=== PATIENT | female | born 1940 | race Caucasian/White ===

== ENCOUNTER 2018-10-10 11:08 | Observation (INO) | payer MEDICARE ==
[~2018-10-10] VITALS: Ht 160 cm; Wt 55.3 kg
[~2018-10-10 11:08] MED LIST: AMIODARONE HCL200 MG PO; ASPIR-LOW81 MG PO; BYSTOLIC10 MG PO; CALTRATE 600 W1 EACH PO; CENTRUM SILVER1 EAC3 PO; CRESTOR20 MG PO; CULTURELLE CAP1 EACH PO; LEVOTHYROXINE75 MCG PO; NAMENDA10 MG PO; PANTOPRAZOLE SO40 MG PO; RIVASTIGMINE1.5 MG TD; STOOL SOFTENER1 EAC2 PO; TYLENOL325 MG PO; VITAMIN D1000 UNI1 PO
--- OUTSIDE RECORDS SUMMARY | 2018-10-10 11:11 | XMS REPORT | Clinical Summary ---
Author Author [email or web address] Organization [facility] Address Unknown Phone Unavailable Care Team Providers Care Woods Boss Name Role Phone Chino Thompson MD PCP Allergies Comments Active Allergy Reactions Severity Noted Date Hallucinations Sulfamethoxazole-Trimetho Other (See 07/31/2014 prim Comments) Phenylephrine-Pheniramine 07/27/2014 Latex 07/27/2014 Medications End Date Status Medication Sig Dispensed Refills Start Date Active alendronate (FOSAMAX) 70 Take 70 mg by 0 MG tablet mouth every 7 days Take in the morning with a full glass of water, on an empty stomach, and do not take anything else by mouth or lie down for the next 30 min. . Active conjugated estrogens Place 0.5 g 0 (PREMARIN) 0.625 mg/gram vaginally vaginal cream twice a week. Active aspirin 81 MG EC tablet Take 81 mg by 0 mouth daily. Active acetaminophen (TYLENOL) Take 500 mg 0 500 MG tablet by mouth every 6 (six) hours as needed for Pain. Active NEBIVOLOL HCL (BYSTOLIC Take by 0 ORAL) mouth. Active LEVOTHYROXINE SODIUM Take by 0 (LEVOTHYROXINE ORAL) mouth. Active PITAVASTATIN CALCIUM Take by 0 (LIVALO ORAL) mouth. Active MEMANTINE HCL (NAMENDA Take by 0 ORAL) mouth. Active RANITIDINE HCL ORAL Take by 0 mouth. Active ezetimibe (ZETIA) 10 mg Take 10 mg by 0 tablet mouth daily. Active hydrocortisone Place 1 12 0 (ANUSOL-HC) 25 mg suppository suppository 5 suppository (25 mg total) rectally 2 (two) times daily. Active Problems Problem Noted Date Shingles rash 08/01/2014 Pneumonia 07/29/2014 Chest pain 07/27/2014 Hypotension 07/27/2014 Social History Date Tobacco Use Types Packs/Day Years Used Current Every Day Smoker Cigarettes 0.5 Alcohol Use Drinks/Week oz/Week Comments No Sex Assigned at Date Recorded Not on file Industry Job Start Date Occupation Not on file Not on file Not on file Travel End Travel History Travel Start No recent travel history available. Last Filed Vital Signs Not on file Plan of Treatment Not on file Results Not on fileafter 10/09/2017 Insurance Payer Benefit Subscriber ID Type Phone Address Plan / Group MEDICARE MEDICARE A xxxxxxxxxx Medicare B [facility] UN xxxxxxxxx CARE COMMERCIAL HEALTHCARE INDEMNITY Advance Directives For more information, please contact: [facility] [address] [place] [address] Date Inactivated Comments Code Status Date Activated 08/03/2014 7:50 PM Full Code 07/28/2014 12:25 AM This code status was determined by: Patient
--- OUTSIDE RECORDS SUMMARY | 2018-10-10 11:11 | XMS REPORT ---
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 Allergies, Adverse Reactions, Alerts This patient has no known allergies or adverse reactions. Medications This patient has no known medications. Results Test Description Test Time Test Comments Text Results Atomic Results Result Comments CHEST [address] [address] Patient Name: PATRICA ISSA MR #: [id number] : 1940 Age/Sex: 76/F Req #: [id number] Adm Physician: Ordered by: RON GOMES MD Report #: [id number] Location: ER Room/Bed: Procedure: [id number] DX/CHEST 2 VIEWS Exam Date: 12/28/16 Exam Time: 0152 REPORT STATUS: Signed EXAMINATION: CHEST 2 VIEWS INDICATION: Chest pain COMPARISON: None FINDINGS: TUBES and LINES: None. LUNGS: Lungs are well inflated. Right lower lobe airspace opacity is suspicious for atelectasis versus developing infection. Calcific density overlying the anterior left hemithorax compatible with pleural calcification. PLEURA: No pleural effusion or pneumothorax. HEART AND MEDIASTINUM: The cardiomediastinal silhouette is unremarkable. BONES AND SOFT TISSUES: No acute osseous lesion. Soft tissues are unremarkable. UPPER ABDOMEN: No free air under the diaphragm. There are cholecystectomy clips. IMPRESSION: Suspected right lower lobe pneumonia. Follow-up until resolution after treatment is recommended Signed by: Dr. Junior Escamilla M.D. on 12/28/2016 2:54 AM Dictated By: JUNIOR SMITH MD 3 Transcribed By: JOE on 12/28/16253 COPY TO: RON GOMES MD
[2018-10-10] MEDS ORDERED: SODIUM CHLORIDE 0.9% 500ML 500 ML IV STA (11:30)
[2018-10-10] MEDS ORDERED: ASPIRIN 81 MG CHEW TAB PO ONE (12:00)
[2018-10-10] MEDS ORDERED: ONDANSETRON HCL INJ 2MG/ML 2ML 2 MG/ML VIAL IV PRN (12:00)
--- NOTE | 2018-10-10 12:12 | Diagnostic Imaging Report ---
EXAMINATION: CHEST SINGLE (PORTABLE) INDICATION: Shortness of breath COMPARISON: None FINDINGS: LINES/TUBES:EKG leads overlie the chest. LUNGS:The lungs are hyperinflated. Left greater than right biapical pleural parenchymal thickening/scarring. No focal consolidation or pulmonary edema. PLEURA:No pleural effusion or pneumothorax. MEDIASTINUM:The cardiomediastinal silhouette appears normal in size and shape. BONES/SOFT TISSUES:No acute osseous injury. ABDOMEN:No free air under the diaphragm. IMPRESSION: Hyperinflated lungs. No focal pneumonia or pulmonary edema. Signed by: Manuel Kendall MD on 10/10/2018 12:08 PM
--- OUTSIDE RECORDS SUMMARY | 2018-10-10 12:15 | XMS REPORT | Clinical Summary ---
Author Author [facility] Organization [facility] Address Unknown Phone Unavailable Care Team Providers Care Paper Colorer Name Role Phone Chino Thompson MD PCP [...] Group MEDICARE MEDICARE A xxxxxxxxxx Medicare B [facility] UN xxxxxxxxx CARE COMMERCIAL HEALTHCARE INDEMNITY Advance Directives For more information, please contact: [facility] [address] [place] [address] Date Inactivated Comments Code Status Date Activated 08/03/2014 7:50 PM Full Code 07/28/2014 12:25 AM This code status was determined by: Patient
[2018-10-10 12:22] LABS: BASOPHILS # (AUTO) 0.1 (0.0-0.1); BASOPHILS % 0.7 % (0.0-1.0); EOSINOPHILS # (AUTO) 0.3 (0.0-0.4); HEMATOCRIT 39.9 % (34.2-44.1); HEMOGLOBIN 13.1 g/dL (12.0-16.0); LYMPHOCYTES # (AUTO) 1.8 (1.0-3.2); LYMPHOCYTES % 24.4 % (18.0-39.1); MEAN CORPUSCULAR HEMOGLOBIN 31.3 pg (28-32); MEAN CORPUSCULAR HGB CONC 32.8 g/dL (31-35); MEAN CORPUSCULAR VOLUME 95.5 fL (81-99); MONOCYTES # (AUTO) 0.7 (0.2-0.8); MONOCYTES % 8.9 % (4.4-11.3); NEUTROPHILS # (AUTO) 4.6 (2.1-6.9); NEUTROPHILS % 61.7 % (38.7-80.0); PLATELET COUNT 163 x10e3/uL (140-360); RED BLOOD COUNT 4.18 x10e6/uL (3.6-5.1); RED CELL DISTRIBUTION WIDTH 13.8 % (11.7-14.4)
[2018-10-10 12:31] LABS: INR 0.86; PROTHROMBIN TIME 12.2 seconds (11.9-14.5)
[2018-10-10 12:32] LABS: PARTIAL THROMBOPLASTIN TIME 23.6 seconds (23.8-35.5)
[2018-10-10 12:40] LABS: ALBUMIN 3.6 g/dL (3.5-5.0); ALBUMIN/GLOBULIN RATIO 1.4 (0.8-2.0); ANION GAP 14.2 mmol/L (8-16); CALCIUM 9.3 mg/dL (8.4-10.2); CREATININE, SERUM 0.96 mg/dL (0.57-1.11); POTASSIUM 4.2 mmol/L (3.5-5.1)
[2018-10-10 12:41] LABS: CLARITY,URINE SL CLOUDY (CLEAR); COLOR,URINE YELLOW (YELLOW); KETONES,URINE NEGATIVE (NEGATIVE); LEUKOCYTE ESTERASE ,URINE TRACE (NEGATIVE); NITRITE,URINE NEGATIVE (NEGATIVE); PROTEIN,URINE DIPSTICK TRACE (NEGATIVE); URINE UROBILINOGEN 0.2 mg/dL (0.2 - 1)
[2018-10-10 12:42] LABS: BILIRUBIN,URINE NEGATIVE (NEGATIVE)
[2018-10-10 12:43] LABS: BACTERIA,URINE MANY /HPF; EPITHELIAL CELLS,URINE MODERATE /LPF; WBC,URINE (MAN) 21-50 /HPF (0-5)
[2018-10-10 12:47] LABS: CREATINE KINASE MB 0.7 ng/mL (0-5.0)
--- NOTE | 2018-10-10 13:00 | NUR ---
PATIENT SITTING UP EATING LUNCH ASSISTED TO BED RAMOS TO URINATE
[2018-10-10] MEDS: SODIUM CHLORIDE 0.9% 1000ML 1,000 ML IV SCH (14:56)
[2018-10-10] MEDS ORDERED: RANITIDINE HCL150 M1 (15:02)
[2018-10-10] MEDS ORDERED: GLUCOSAMINE1000 MG PO (15:02)
[2018-10-10] MEDS ORDERED: METHENAMINE1 GM PO (15:02)
[2018-10-10] MEDS: CEFTRIAXONE SOD 1 GM/NS 50 ML 50 ML IV SCH (19:50)
[2018-10-10 20:26] VITALS: BP 160/83
[2018-10-10] MEDS: CRESTOR 10MG PO SCH (20:26)
--- NOTE | 2018-10-10 20:51 | Diagnostic Imaging Report ---
EXAMINATION: CT of the chest with contrast, PE protocol. TECHNIQUE: Spiral CT images of the chest were performed from the lung apices through the level of the adrenal glands after the IV administration of 100 cc of Isovue 370. Thin section reconstructions were obtained with special concentration on the pulmonary arteries. Coronal and sagittal reformatted images were performed.. COMPARISON: Portable chest 10/10/2018 CLINICAL HISTORY:Shortness of breath, chest pain DISCUSSION: Lungs: No filling defects are identified in the main, right or left pulmonary arteries to their segmental and subsegmental levels, to suggest pulmonary embolism. Mild subpleural reticulation, predominantly in the lower lobes, likely reflecting mild fibrotic changes. Focal scarring and associated mild bronchiectatic changes in the lateral lingula (3, image 52). Linear scarring is also noted in the right middle lobe (series 2, image 62). No masses, nodules or consolidation. Airways are clear, without endobronchial lesions. Pleura: <There is no evidence of pleural effusion or pneumothorax.> Heart and mediastinum: Thyroid is not imaged. Heart size is normal. No pericardial effusion. Aorta is nonaneurysmal. Main pulmonary artery is normal in caliber. Mild atherosclerotic calcification of the coronary arteries and thoracic aorta. Lymph nodes: Borderline enlarged right lower paratracheal lymph node, which measures 1.0 cm in short axis. No other mediastinal or hilar or axillary adenopathy. Abdomen: <The visualized parts of the upper abdomen are unremarkable.> Limited contrast enhanced views of the upper abdomen show reflux of contrast into the IVC and hepatic veins. Visualized portions of the liver, spleen, pancreas, kidneys and adrenal glands are unremarkable. Bones and soft tissues: No aggressive lytic lesions. Degenerative disc changes in the thoracic spine. Soft tissues are grossly unremarkable. IMPRESSION: 1. No CT evidence of pulmonary embolism. 2. Mild fibrotic changes predominantly in the lower lobes, with focal scarring and mild bronchial ectatic changes in the lateral aspect of the lingula and right middle lobe. No consolidation or effusion. 3. Borderline enlarged right lower paratracheal lymph node, likely reactive. No other mediastinal or any hilar or axillary adenopathy Signed by: Dr. Thuan Donovan M.D. on 10/10/2018 8:48 PM
[2018-10-10 21:00] VITALS: BP 160/83
[2018-10-10 21:23] LABS: CREATINE KINASE MB 0.7 ng/mL (0-5.0)
[2018-10-10] MEDS ORDERED: SODIUM CHLORIDE 0.9% 50ML 50 ML ONE (22:29)
[2018-10-10] MEDS ORDERED: IOPAMIDOL 370 MG/ML 200 ML INFUS..BTL INJ ONE (22:29)
[2018-10-11] VITALS (8 sets, daily range): BP systolic 125–200; BP diastolic 75–96
--- NOTE | 2018-10-11 01:22 | History and Physical ---
CHIEF COMPLAINT: Chest pain. HISTORY OF PRESENT ILLNESS: 77-year-old female with known history of dementia, history of CAD in which she sees a home management supervisor at [facility], presents to the hospital ED with complaints of chest pain and shortness of breath. The patient was evaluated by a PA at [facility] and the patient was complaining of shortness of breath at that time. She was also pointing toward her chest and which the family was concerned that she may have underlying chest pain. The patient has baseline dementia and she is not able to tell us a story about what really happen to her. According to the daughter at bedside, she noticed that her mom has been short of breath since of last week. She notices that when her mom goes and does trash, she has been very short of breath, would sit down, feel very tachypneic on exam according to the daughter. She also endorses that her mom keeps pointing toward her chest. She feels like that she may be having some underlying chest pain. There is no reports of any cough, congestion, recent fever. No abdominal pain, nausea, vomiting, or any diarrhea. The patient was seen and evaluated at bedside on the medical floor. She is currently doing well. She is stable. Vital signs are stable as well. The patient's and daughter was at bedside. I answered all their questions and the nurse was present during examination. REVIEW OF SYSTEMS: 1. Pertinent positives: Probable chest pain and shortness of breath. 2. Pertinent negatives: Denies any palpitation, nausea, vomiting, diarrhea, dysuria, hematuria, frequency, urgency, lightheadedness, dizziness, abdominal pain, headaches, cough, congestion, fever, or any other complaints. Rest of the 14-point review of systems have been reviewed with the patient and are negative. ALLERGIES: LATEX. HOME MEDICATIONS: Vitamin D3 of 1000 units daily, glucosamine, ranitidine, amiodarone 50 mg daily, aspirin 81 mg daily, levothyroxine 75 mcg daily, memantine 28 mg daily, Bystolic 5 mg daily, Protonix 40 mg daily, rivastigmine 4.6 mg daily, and Crestor 20 mg daily. PAST MEDICAL HISTORY: Has a history of CAD, Alzheimer dementia, acid reflux, and hypertension. PAST SURGICAL HISTORY: Reports none. FAMILY HISTORY: Hypertension and diabetes. SOCIAL HISTORY: No drugs. No alcohol. Does not smoke, has baseline dementia. She has children. She is . PHYSICAL EXAMINATION: VITAL SIGNS: Temperature is 98.4, pulse 54, respiratory rate 16, blood pressure 161/59, and pulse ox 98% on room air. GENERAL: In no acute distress. Alert and oriented x1 at baseline. HEENT: Head normocephalic and atraumatic. Eyes; pupils are equal, round, and reactive to light bilaterally. Extraocular movements are intact bilaterally. Throat, no evidence erythema or exudates in the posterior pharynx. Has poor dentition. NECK: Supple. Good range of motion. PULMONARY: Clear to auscultation bilaterally. No wheezing, rales, or rhonchi. No crackles appreciated. CARDIOVASCULAR: Positive S1 and S2. No murmurs, rubs, or gallops appreciated. ABDOMEN: Soft, nondistended, and nontender to palpation. Bowel sounds present. MUSCULOSKELETAL: Strength is 5/5 throughout. No evidence or any muscle deficits on examination. No weakness appreciated. NEUROLOGICAL: Cranial nerves 2 through 12 grossly intact. No evidence of neurological deficits on exam. SKIN: Intact. Warm to touch. Good cap refill. PSYCHIATRIC: Normal affect and mood. EXTREMITIES: No edema. Good range of motion throughout. LABORATORY DATA: White count 7.4, hemoglobin 13, hematocrit 39.9, and platelets of 163. Coagulation; PT 12, INR 0.86, PTT 23.6. Chemistry; sodium 142, potassium 4.3, chloride 105, bicarb 27, anion gap of 14, BUN 26, creatinine 0.86, glucose 101, calcium 9.3, total bilirubin was 0.3, AST 23, ALT 16, alkaline phosphatase 30, CK 75, troponin is 0.007, total protein 6.1, albumin 3.6. Urinalysis concerning for underlying UTI. Microbiology, none. IMAGING STUDIES: Chest x-ray, hyperinflated lungs. No focal pneumonia or pulmonary edema. IMPRESSION: 1. Dyspnea on exertion, unknown etiology. 2. Chest pain, rule out acute coronary syndrome. 3. Alzheimer dementia. 4. Probable urinary tract infection. 5. Hypertension. PLAN: At this time, I will go ahead and trend troponins x3 more. Get a BNP level. Get a 2D echo and get a Cardiology consultation. I will go ahead and order a CT/PE protocol as she complains of shortness of breath upon exertion and ambulation. She only has a chest x-ray which was noted. In relation to her UA, it looked consistent for UTI, which could be in this older patient that she may have UTI symptoms, which could be explaining her possible shortness of breath or chest pain. I will go ahead and send a urine culture, because it was not sent to the ER and I will go ahead and put her on 1 g of Rocephin daily. We are going to either a repeat urine culture or use a sample from the ER. I will get PT and OT to work with the patient and put her on Lovenox for DVT prophylaxis. We will get a.m. labs as well as well, and resume same home medications accordingly. MD JAIME Flores/ALEJANDRAL /[id number]
[2018-10-11] MEDS: SODIUM CHLORIDE 0.9% 1000ML 1,000 ML IV SCH (05:17)
[2018-10-11] MEDS: LEVOTHYROXINE SODIUM 75 MCG TAB PO SCH (05:18)
--- NOTE | 2018-10-11 05:18 | Diagnostic Imaging Report ---
EXAMINATION: CHEST SINGLE (PORTABLE) INDICATION: Chest pain. COMPARISON: 10/10/2018. FINDINGS: TUBES and LINES: None. LUNGS: Lungs are well inflated. There are bibasilar atelectasis. There is no evidence of pneumonia or pulmonary edema. PLEURA: No pleural effusion or pneumothorax. HEART AND MEDIASTINUM: The cardiomediastinal silhouette is unremarkable. BONES AND SOFT TISSUES: No acute osseous lesion. Soft tissues are unremarkable. UPPER ABDOMEN: No free air under the diaphragm. IMPRESSION: No acute thoracic abnormality. Signed by: Dr. Cheryl Luna M.D. on 10/11/2018 5:15 AM
[2018-10-11 05:50] LABS: BASOPHILS # (AUTO) 0.1 (0.0-0.1); BASOPHILS % 0.7 % (0.0-1.0); EOSINOPHILS # (AUTO) 0.5 (0.0-0.4); HEMATOCRIT 39.4 % (34.2-44.1); HEMOGLOBIN 12.9 g/dL (12.0-16.0); LYMPHOCYTES # (AUTO) 2.6 (1.0-3.2); LYMPHOCYTES % 31.6 % (18.0-39.1); MEAN CORPUSCULAR HEMOGLOBIN 31.2 pg (28-32); MEAN CORPUSCULAR HGB CONC 32.7 g/dL (31-35); MEAN CORPUSCULAR VOLUME 95.4 fL (81-99); MONOCYTES # (AUTO) 0.7 (0.2-0.8); MONOCYTES % 8.4 % (4.4-11.3); NEUTROPHILS # (AUTO) 4.4 (2.1-6.9); NEUTROPHILS % 52.9 % (38.7-80.0); PLATELET COUNT 160 x10e3/uL (140-360); RED BLOOD COUNT 4.13 x10e6/uL (3.6-5.1); RED CELL DISTRIBUTION WIDTH 13.9 % (11.7-14.4)
[2018-10-11 06:03] LABS: INR 0.86; PROTHROMBIN TIME 12.2 seconds (11.9-14.5)
[2018-10-11 06:04] LABS: PARTIAL THROMBOPLASTIN TIME 25.3 seconds (23.8-35.5)
[2018-10-11 06:22] LABS: CREATINE KINASE MB 0.9 ng/mL (0-5.0)
[2018-10-11 06:46] LABS: ALANINE AMINOTRANSFERASE 13 IU/L (0-55); ALBUMIN 3.5 g/dL (3.5-5.0); ALBUMIN/GLOBULIN RATIO 1.5 (0.8-2.0); ALKALINE PHOSPHATASE 30 IU/L (40-150); ANION GAP 13.6 mmol/L (8-16); BLOOD UREA NITROGEN 20 mg/dL (7-26); BUN/CREATININE RATIO 23 (6-25); CALCIUM 8.7 mg/dL (8.4-10.2); CARBON DIOXIDE 25 mmol/L (22-29); CHLORIDE 108 mmol/L (98-107); CREATININE, SERUM 0.87 mg/dL (0.57-1.11); EST GLOMERULAR FILTRATION RATE > 60 ML/MIN (60-); GLUCOSE 96 mg/dL (74-118); POTASSIUM 3.6 mmol/L (3.5-5.1); SODIUM 143 mmol/L (136-145)
--- NOTE | 2018-10-11 07:19 | NUR ---
Report given to oncoming nurse Anuja, walking round done.
[2018-10-11] MEDS ORDERED: MEMANTINE 10 MG TAB PO SCH (09:00)
[2018-10-11] MEDS ORDERED: ASPIRIN 81 MG CHEW TAB PO SCH (09:00)
[2018-10-11] MEDS: NAMENDA 28 MG PO SCH (09:00)
[2018-10-11] MEDS ORDERED: RIVASTIGMINE TARTRATE 1.5 MG CAP PO SCH (09:00)
[2018-10-11] MEDS ORDERED: ASPIRIN 325 MG TAB PO SCH (09:00)
[2018-10-11] MEDS ORDERED: NON-FORMULARY MEDICATION (Rosuvastatin Calcium (Crestor) 20 MG) PO SCH (09:00)
[2018-10-11] MEDS: AMIODARONE HCL 200 MG TAB PO SCH (09:25)
[2018-10-11] MEDS: ASPIRIN 81 MG CHEW TAB PO SCH (09:25)
[2018-10-11] MEDS: NEBIVOLOL 10 MG TAB PO SCH (09:25)
[2018-10-11] MEDS: PANTOPRAZOLE SOD 40 MG TABEC PO SCH (09:26)
[2018-10-11] MEDS: RIVASTIGMINE PATCH 4.6MG/24 HOURS PATCH TD SCH (09:28)
[2018-10-11] MEDS ORDERED: MORPHINE SULFATE 2 MG/ML SYR 1ML IV PRN (10:30)
[2018-10-11] MEDS ORDERED: MORPHINE SULFATE 2 MG/ML SYR 1ML ONE (10:32)
[2018-10-11 11:53] LABS: THYROID STIMULATING HORMONE 3.087 uIU/mL (0.350-4.940)
--- NOTE | 2018-10-11 12:39 | Progress Note ---
DATE: 10/11/2018 Medicine Progress Note SUBJECTIVE: The patient reported having chest pain this morning. Cardiology came to evaluate her. Currently, she is doing well with no complaints. She is on supplemental oxygen. Her blood pressure is slightly elevated at 159. She was on saline, which we will go ahead and discontinue. PHYSICAL EXAMINATION: VITAL SIGNS: Temperature 97.1, pulse 58, respiratory rate is 17, blood pressure 159/82, pulse ox 97% on room air. GENERAL: Not in acute distress. Alert and oriented x3. Cooperative on examination. HEENT: Head; normocephalic and atraumatic. Eyes; pupils are equal, round, and reactive to light bilaterally. Extraocular movements are intact bilaterally. Throat; no evidence erythema or exudates in the posterior pharynx. Has poor dentition. NECK: Supple. Good range of motion. PULMONARY: Clear to auscultation bilaterally. No wheezing, rales, or rhonchi. No crackles appreciated. CARDIOVASCULAR: Positive S1 and S2. No murmurs, rubs, or gallops appreciated. ABDOMEN: Soft, nondistended, and nontender to palpation. Bowel sounds present. MUSCULOSKELETAL: Strength is 5/5 throughout. No evidence of any muscle deficits on examination. No weakness appreciated. NEUROLOGICAL: Cranial nerves II through XII grossly intact. No evidence of neurological deficits on exam. SKIN: Intact. Warm to touch. Good cap refill. PSYCHIATRIC: Normal affect and mood. EXTREMITIES: No edema. Good range of motion throughout. LABORATORY DATA: Lab findings show white count 8.3, hemoglobin 12.9, hematocrit 39, and platelets of 160. Coagulations were normal. Chemistries were all reviewed and stable. Troponins were all negative. BNP 560. Albumin 3.5. TSH was 3. LDL was 87. Urinalysis concerning for underlying UTI. MICROBIOLOGY: Urine cultures are pending. IMAGING STUDIES: Chest x-ray this morning showed no acute thoracic abnormality. IMPRESSION: 1. Dyspnea on exertion with mild elevation of BNP, pending 2D echo. 2. Chest pain ruled out, likely atypical in nature. 3. Alzheimer's dementia. 4. Probable urinary tract infection. 5. Hypertension. PLAN: We will go ahead and stop the IV fluids for now. Cardiac enzymes were negative. BNP slightly elevated. A 2D echo is pending. Cardiology is following. The CTA of her chest was negative for any pulmonary embolism. I will continue with IV antibiotics for now for probable UTI. She will likely be discharged on some form of antibiotic. She is otherwise doing well. Imaging was negative. Cardiac enzymes were negative. Await final recommendations by Cardiology. Work with PT and OT. Lovenox for DVT prophylaxis. She can likely be discharged home tomorrow if cleared by Cardiology and the patient is doing better. MD JAIME Flores/MASHA /[id number]
[2018-10-11] MEDS: LIDOCAINE 5% PATCH TP SCH (13:54)
--- NOTE | 2018-10-11 16:40 | Consultation ---
DATE OF CONSULTATION: CHIEF COMPLAINT: Shortness of breath. REASON FOR CONSULTATION: Chest pain. HISTORY OF PRESENT ILLNESS: This is a 77-year-old female with history of hypertension, hyperlipidemia, hypothyroidism, reflux disease, IBS, dementia, COPD, and history of atrial arrhythmias in 2013. The patient presents to [facility] ER after being evaluated by her provider Katherine Michaels and was noted to be short of breath for several days. Also, apparently the patient is pointing to her chest and was advised to come to the hospital for further evaluation. Labs noted with negative troponins x3, BNP in the 500 range. CTA noted with no PE. Chest x-ray noted no acute abnormalities. The patient was seen in the room with family at bedside. Most information was obtained from daughter since the patient is very poor historian given her dementia status. Apparently, daughter reports she has been noted to be more short of breath in recent days. Therefore, went to see her primary care provider and was noted with a slight more short of breath and also, the patient was asked if she had any discomfort. Apparently, the patient pointed to her chest; however, when asked if the patient is having any chest pain, she denies, however, does have some chest pain with palpation. Currently, the patient seems comfortable, no obvious signs of shortness of breath. No orthopnea. There is some slight lower extremity edema. PAST MEDICAL HISTORY: Dementia, IBS, reflux, hypertension, hyperlipidemia, hypothyroidism, atrial arrhythmias in 2013 during a bout of pneumonia. PAST SURGICAL HISTORY: Cholecystectomy, hysterectomy, bilateral cataracts. FAMILY HISTORY: The patient is adopted, unknown family history. SOCIAL HISTORY: She is . 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 No alcohol use or tobacco use. HOME MEDICATIONS: 1. Amiodarone 50 mg daily. 2. Aspirin 81 mg p.o. daily. 3. Levothyroxine 75 mcg p.o. daily. 4. Namenda 28 mg daily. 5. Bystolic 5 mg daily. 6. Protonix 40 mg daily. 7. Rivastigmine 4.6 mg daily. 8. Crestor 20 mg daily. ALLERGIES: TO LATEX. REVIEW OF SYSTEMS: Unable to obtain since the patient is poor historian given her demented status. PHYSICAL EXAMINATION: VITAL SIGNS: Height 63 inches, weight 122 pounds, temperature 97, pulse 58, respiratory rate 17, blood pressure 159/82, pulse ox 97 on room air. GENERAL: Appears stated age, in no acute distress. Very poor historian given her dementia. The patient is able to give me her name. She states she does recognize her daughter and , however, she cannot tell me where exactly she is at or what year it is. SKIN: No rashes or bruises noted. HEENT: Normocephalic. Pupils equal, reactive. Extraocular motor intact. Trachea midline. No JVD. No thyromegaly noted and no carotid bruits noted. HEART: Regular rate and rhythm. Soft systolic murmur heard in the right sternal border. LUNGS: Bilateral breath sounds clear to auscultation. ABDOMEN: Soft, nontender, nondistended. No organomegaly noted. MUSCULOSKELETAL: Generalized weakness throughout. Some slight lower extremity swelling noted. +1 Vascular, +2 bilateral radial pulses, +1 DP, PT pulses bilaterally. NEUROLOGIC: Cranial nerves II-XII seem intact. LABORATORY DATA: White count 8, hemoglobin 12.9, hematocrit 39, platelets 160. Sodium 143, potassium 3.6, chloride 108, BUN 20, creatinine 0.8. Troponin 0.07, 0.004, 0.008. BNP 560. Imaging: No acute abnormalities noted. CTA, no PE. Fibrotic changes in the lower lobes. ASSESSMENT: 1. Dyspnea on exertion. 2. Chest pain, atypical in nature. 3. Hypertension. 4. Hyperlipidemia. 5. History of atrial arrhythmias. 6. Dementia. 7. Debility. PLAN: 1. The patient presents with some shortness of breath was noted with, however, some chest discomfort. However, chest pain is atypical for cardiac and is reproducible with slight palpation. EKG noted normal sinus rhythm. 2. We will get an echo to evaluate heart function and structure. 3. We will continue her cardiac medications are aspirin, beta-tamika, statin. 4. Continue her rhythm control therapy. 5. I will continue telemonitoring to evaluate for any arrhythmias. 6. Long discussion with the patient's daughter and . They are leaning towards conservative therapy given the patient's dementia. However, we will continue to evaluate the patient and further recommendations as clinical course dictates. Thank you very much for this consult. Seen and evaluated Discussed with family Cardiac medical Rx /2 to advanced forgetful status Dictated by Alphonso Benoit, CLAUDIA Troy Velazquez MD DC/MASHA /[id number]
[2018-10-11] MEDS: CEFTRIAXONE SOD 1 GM/NS 50 ML 50 ML IV SCH (19:28)
[2018-10-11] MEDS: ENOXAPARIN SOD INJ 40 MG/0.4 ML SYR SC SCH (19:28)
[2018-10-11] MEDS: CRESTOR 10MG PO SCH (20:24)
--- NOTE | 2018-10-11 23:12 | NUR ---
received report. patient resting with eyes closed. no ss of distress observed. family member at bedside. bed locked and in lowest position, call light within easy reach. bed alarm activated.
[2018-10-12 00:13] VITALS: BP 170/88
[2018-10-12 04:36] VITALS: BP 144/77
[2018-10-12] MEDS: LEVOTHYROXINE SODIUM 75 MCG TAB PO SCH (06:44)
--- NOTE | 2018-10-12 07:08 | NUR ---
report given to oncoming nurse.
[2018-10-12 07:26] VITALS: BP 166/82
--- NOTE | 2018-10-12 07:48 | NUR ---
Patient alert and responsive, in bed at this time, call light within reach and bed alarms in place, will monitor.
[2018-10-12] MEDS ORDERED: ACETAMINOPHEN 325 MG TAB PO PRN (08:15)
[2018-10-12] MEDS: NAMENDA 28 MG PO SCH (09:00)
[2018-10-12] MEDS: NEBIVOLOL 10 MG TAB PO SCH (09:48)
[2018-10-12] MEDS: ASPIRIN 81 MG CHEW TAB PO SCH (09:48)
[2018-10-12] MEDS: RIVASTIGMINE PATCH 4.6MG/24 HOURS PATCH TD SCH (09:49)
[2018-10-12] MEDS: PANTOPRAZOLE SOD 40 MG TABEC PO SCH (09:49)
[2018-10-12] MEDS: LIDOCAINE 5% PATCH TP SCH (09:49)
[2018-10-12] MEDS: AMIODARONE HCL 200 MG TAB PO SCH (09:49)
[2018-10-12] MEDS ORDERED: FUROSEMIDE 20 MG TAB PO SCH (10:00)
[2018-10-12 10:07] VITALS: BP 166/82
[2018-10-12 11:29] VITALS: BP 181/88
--- NOTE | 2018-10-12 11:50 | NUR ---
Rounds by Dr. Santana and notified BP elevated, orders for Losartan 100mg x1 and check BP again and will be ok to d/c if BP lower. will monitor.
[2018-10-12] MEDS ORDERED: LOSARTAN POTASSIUM 100 MG TAB PO ONE (12:00)
[2018-10-12 15:18] VITALS: BP 137/65
--- NOTE | 2018-10-12 15:23 | NUR ---
PT DAUGHTER SIGNED CHOICE FOR [facility] FAXING CLINICALS TO GET ACCEPTANCE.
[2018-10-12] MEDS ORDERED: ONDANSETRON HCL 4 MG ORAL DISINTEGRATING TAB PO PRN (15:30)
[2018-10-12] MEDS ORDERED: LASIX20 MG PO (15:55)
[2018-10-12] MEDS ORDERED: LOSARTAN POTASS25 MG PO (15:55)
[2018-10-12] MEDS ORDERED: CEFDINIR300 MG PO (15:56)
--- NOTE | 2018-10-12 16:00 | NUR ---
Home health set up by case management and confirmed.
[2018-10-12] MEDS: ENOXAPARIN SOD INJ 40 MG/0.4 ML SYR SC SCH (16:31)
--- NOTE | 2018-10-12 17:07 | NUR ---
Home health set up for PT done, patient provided with discharge instructions and prescriptions, IV line removed with cath tip in place, BP much better at 137/65. Instructed to f/u with PCP on discharge and cardiology. Patient stable to go home.
[2018-10-12] MEDS: CEFTRIAXONE SOD 1 GM/NS 50 ML 50 ML IV SCH (17:15)
--- NOTE | 2018-10-13 02:27 | Discharge Summary ---
FINAL DISCHARGE DIAGNOSES: 1. Shortness of breath, resolved. 2. Atypical chest pain. 3. Alzheimer's dementia. 4. Negative for urinary tract infection. 5. Hypertension. CONSULTANTS: Cardiology. VITAL SIGNS: Temperature is 98.9, pulse 50, respiratory rate is 20, blood pressure 166/82, pulse ox 95% on room air. LABORATORY DATA: White count 8.3, hemoglobin 12.9, hematocrit is 39, and platelets of 160. Coagulation normal. Chemistry; sodium 143, potassium 3.6, chloride 108, bicarb 25, anion gap of 13, BUN is 20, creatinine is 0.87, glucose 96, calcium is 8.7. LFTs within normal range. Alkaline phosphatase 30. Troponins were negative. BNP 560. Albumin was 3.5. LDL was 87. TSH was 3. Urinalysis . Urine culture was negative. IMAGING STUDIES: Chest x-ray, hyperinflated lungs. No focal pneumonia or pulmonary edema. CTA of the chest shows no evidence of pulmonary embolism. Mild fibrotic changes predominantly in the lower lobes with no focal scarring involved, bronchiectatic changes in the lateral aspect of the lingula and right middle lobe. No consolidation or effusion. There were enlarged right lower paratracheal lymph nodes, likely reactive. No other mediastinal or any hilar or axillary adenopathy. Discussed with the family to follow up as an outpatient to see if there is any resolution. They verbalized understanding. Repeat chest x-ray, no acute thoracic abnormality. HOSPITAL COURSE: This is a 77-year-old female, who has baseline Alzheimer's dementia, hypertension, came in because she was complaining of substernal chest pain and underlying shortness of breath. Cardiology was consulted. Cardiac enzymes were negative. A 2D echo shows EF of greater than 50%. Discussed case with Cardiology. No further workup was needed. She was discharged on oral diuretics as per recommendations by Cardiology. Her chest pain is likely atypical in nature. She was not on any oxygen prior to being discharged as well. She also had probable UTI and was discharged on oral antibiotics. I discussed overall findings with the daughter at bedside and she verbalized understanding. She is currently doing well with no other complaints. The patient was cleared for discharge by Cardiology. On the day of discharge, vital signs were stable, labs reviewed and stable. The patient seen and evaluated, examined thoroughly on the day of discharge. No other complaints. 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 MEDICATION: See med reconciliation form. DISPOSITION: Home. CONDITION: Stable. DIET: Heart healthy. In the event of any worsening symptoms, the patient was advised to come back to the ED for further evaluation. Discharge summary took greater than 35 minutes. MD JAIME Flores/MODL /[id number]
--- NOTE | 2018-10-13 08:17 | NUR ---
WAS CALLED BY [facility] LAST NIGHT AT 730PM AND TOLD THIS POLICY IS NOT IN NETWORK WITH THEM, FAXED CLINICALS TO [facility].
[2018-10-13] MEDS ORDERED: POLYETHYLENE GLYCOL 3350 17 GM PACK PO SCH (09:00)
== END 2018-10-12 17:35 | disposition home or self-care (01) ==
LOC: ER 11:08 → ERHOLD 12:11 → IMCU 14:20
PROVIDERS: ADMIT Internal Medicine; ATTEND Internal Medicine
DX: R07.89 Other chest pain (principal); I10 Essential (primary) hypertension; K58.9 Irritable bowel syndrome, unspecified; Z90.49 Acquired absence of other specified parts of digestive tract; Z83.3 Family history of diabetes mellitus; Z82.49 Family history of ischemic heart disease and other diseases of the circulatory system; I25.10 Atherosclerotic heart disease of native coronary artery without angina pectoris; G30.9 Alzheimer's disease, unspecified; F02.80 Dementia in other diseases classified elsewhere, unspecified severity, without behavioral disturbance, psychotic disturbance, mood disturbance, and anxiety; E78.5 Hyperlipidemia, unspecified; E03.9 Hypothyroidism, unspecified; K21.9 Gastro-esophageal reflux disease without esophagitis; R53.81 Other malaise; R06.00 Dyspnea, unspecified
CPT/HCPCS: 36415 ×2; 71045 ×2; 71260; 80053 ×2; 80061; 81001; 82550 ×2; 82553 ×2; 83880; 84443; 84484 ×2; 85025 ×2; 85610 ×2; 85730 ×2; 87086; 93005 ×2; 93306; 97116; 97139; 97162; 99284; G0378 ×3; J0696 ×3; J1650 ×2; J2270; J7030 ×2; J7040; Q9967; S0164 ×2